=== PATIENT | female | born 1995 | race Caucasian/White ===

== ENCOUNTER 2016-06-13 12:33 | Outpatient (CLI) | payer OTHER ==
[2016-06-13 13:04] VITALS: BP 115/65; PULSE 126; RESP 20; TEMP 96.4
== END 2016-06-13 14:00 | disposition home or self-care (01) ==
LOC: FBPOP 12:33
PROVIDERS: ATTEND Obstetrics & Gynecology
DX: O47.03 False labor before 37 completed weeks of gestation, third trimester (principal); Z3A.36 36 weeks gestation of pregnancy
CPT/HCPCS: 59025; 99213

== ENCOUNTER 2016-06-16 01:08 | Outpatient (CLI) | payer OTHER ==
[2016-06-16 02:29] VITALS: BP 129/77; PULSE 86; RESP 15; TEMP 96.9
== END 2016-06-16 02:30 | disposition home or self-care (01) ==
LOC: FBPOP 01:08
PROVIDERS: ATTEND Obstetrics & Gynecology
DX: O26.93 Pregnancy related conditions, unspecified, third trimester (principal); Z3A.00 Weeks of gestation of pregnancy not specified
CPT/HCPCS: 59025; 84112; 99213

== ENCOUNTER 2016-07-09 11:49 | Outpatient (CLI) | payer OTHER ==
[2016-07-09 12:31] VITALS: BP 148/70; RESP 18; TEMP 97.2
[2016-07-09 13:12] VITALS: PULSE 115
== END 2016-07-09 12:55 | disposition home or self-care (01) ==
LOC: FBPOP 11:49
PROVIDERS: ATTEND Obstetrics & Gynecology
DX: O47.1 False labor at or after 37 completed weeks of gestation (principal); Z3A.40 40 weeks gestation of pregnancy
CPT/HCPCS: 59025; 84112; 99213

== ENCOUNTER 2016-07-11 08:06 | Inpatient (IN) | payer OTHER ==
[2016-07-11] MEDS ORDERED: OXYTOCIN 10 UNIT/ML 1 ML VIAL IM PRN (11:08)
[2016-07-11] MEDS ORDERED: TERBUTALINE 1 MG/ML VIAL SQ PRN (11:08)
[2016-07-11] MEDS ORDERED: METHYLERGONOVINE 0.2 MG/ML 1 ML AMP IM PRN (11:08)
[2016-07-11] MEDS ORDERED: LIDOCAINE 1% (PF) 10 MG/ML (30 ML SDV) SQ PRN (11:08)
[2016-07-11] MEDS ORDERED: CARBOPROST TROMETHAMINE 250 MCG/ML 1 ML AMP IM PRN (11:08)
[2016-07-11] MEDS ORDERED: PENICILLIN G POTASSIUM 5,000,000 UNIT in DEXTROSE 5% IN WATER 100 ML IV STA ×2 (11:12)
--- NOTE | 2016-07-11 11:16 | P.HPOB ---
History of Present Illness H&P Date: 07/11/16 Chief Complaint: 40-2/7 weeks, early labor The patient is a 21-year-old 3 para 2001 admitted at 40-2/7 weeks as established by last menstrual period and confirmed by second trimester ultrasound. She is admitted through triage with documented cervical change making the diagnosis of early labor. Her has been essentially uncomplicated though she is significantly obese and has a history of macrosomia and a previous delivery. Ultrasound performed in the third trimester at approximately 36 weeks demonstrated estimated weight at the 46th percentile. Group B strep status is positive. Obstetrical history 3 para 2001 with 2 term vaginal deliveries without complications though the second infant was more than 9 pounds. Current statistics are listed in history present illness. EDC of 07/09/2016 was established by last menstrual period and confirmed by second trimester ultrasound. Laboratory workup done traits of blood type of A+ with a negative antibody screen. Rubella status is immune. The remainder of laboratory workup was within normal limits. Early Glucola and second trimester Glucola were within normal limits. Group B strep status is positive. Gynecologic history: Unremarkable without any history of infections to include STDs. Review of Systems All systems: negative (Review of systems is confined to history of present illness.) Eyes: denies blurred vision, denies pain Ears, nose, mouth and throat: Denies headache, Denies sore throat Cardiovascular: Denies chest pain, Denies shortness of breath Respiratory: Denies cough Gastrointestinal: Denies abdominal pain, Denies diarrhea, Denies nausea, Denies vomiting Genitourinary: Denies dysuria, Denies hematuria Musculoskeletal: Denies myalgias Integumentary: Denies pruritus, Denies rash Neurological: Denies numbness, Denies weakness Psychiatric: Denies anxiety, Denies depression Endocrine: Denies fatigue, Denies weight change Past Medical History Past Medical History: No Reported History History of Any Multi-Drug Resistant Organisms: None Reported Past Surgical History: No Surgical Hx Reported Past Psychological History: Anxiety, Depression Smoking Status: Never smoker Past Alcohol Use History: None Reported Past Drug Use History: None Reported Medications and Allergies Home Medications Medication Instructions Recorded Confirmed Type Pnv with Ca,No.72/Iron/FA 1 tab PO DAILY 10/18/14 07/11/16 History [ Plus Tablet] Allergies Allergy/AdvReac Type Severity Reaction Status Date / Time No Known Allergies Allergy Verified 07/11/16 08:31 Exam - Vital Signs Vital signs: Intake and Output 07/10/16 07/11/16 07/11/16 22:59 06:59 14:59 Other: Weight 151.953 kg Patient Weight 07/12/16 06:59 Weight 151.953 kg In general, this is a well-developed, morbidly obese white female in some discomfort as she is in early labor. Her heart has a regular rhythm and rate without murmur. Her lungs are clear to auscultation bilaterally in all meadows. Her abdomen is obese, nondistended, has normal active bowel sounds, soft, nontender, and without any palpable masses aside from uterine fundus. Her extremities without any cyanosis, clubbing, or edema and are nontender to palpation. Digital cervical examination performed by the nursing staff to straights her cervix to be 4+ centimeters dilated, 70% effaced, with the vertex in presentation at -2 station. Assessment and Plan (1) Group B streptococcal infection in Status: Acute (2) Active labor at term Status: Acute Plan: The patient is admitted for active management of labor. Antibody prophylaxis has been ordered. She will shortly undergo artificial rupture of membranes and expectant management will be practiced. She is a good candidate for either IV or epidural analgesia, whichever she may choose. She will continue to have close maternal and surveillance throughout.
[2016-07-11] MEDS ORDERED: BUTORPHANOL 1 MG/ML 1 ML VIAL IV PRN (11:34)
[2016-07-11] MEDS: LACTATED RINGERS 1,000 ML IV SCH (11:45)
[2016-07-11 11:57] LABS: Basophils % (A) 0 %; CH 26.8; Eosinophils # (A) 0.1 k/uL (0-0.7); Eosinophils % (A) 1 %; HCT 34.5 % (34.0-46.0); HGB 11.4 gm/dL (11.4-16.0); Hypochromasia Slight; Luc # (Auto) 0.17; Luc % (Auto) 2; Lymphocytes # (A) 1.9 k/uL (1.0-4.8); Lymphocytes % (A) 17 %; MCH 27.9 pg (25.0-35.0); MCHC 33.1 g/dL (31.0-37.0); MCV 84.3 fL (80.0-100.0); Mean Platelet Volume 10.5; Monocytes # (A) 0.5 k/uL (0-1.0); Monocytes % (A) 5 %; Neutrophils # (A) 8.3 k/uL (1.3-7.7); Neutrophils % (A) 75 %; RDW 15.1 % (11.5-15.5); WBC 11.1 k/uL (3.8-10.6); WBC (Perox) 11.22
[2016-07-11 12:41] VITALS: BMI 54.7
[2016-07-11] MEDS ORDERED: diphenhydrAMINE 25 MG CAP PO PRN (13:57)
[2016-07-11] MEDS ORDERED: diphenhydrAMINE 50 MG CAP PO PRN (13:57)
[2016-07-11] MEDS ORDERED: SIMETHICONE 80 MG CHEWABLE PO PRN (13:57)
[2016-07-11] MEDS ORDERED: Acetaminophen-Codeine 300-30mg TAB PO PRN (13:57)
[2016-07-11] MEDS ORDERED: WITCH HAZEL 1 EACH MED..PAD TOPICAL PRN (13:57)
[2016-07-11] MEDS ORDERED: diphenhydrAMINE 50 MG/ML 1 ML VIAL IVP PRN ×2 (13:57)
[2016-07-11] MEDS ORDERED: LANOLIN CREAM 5 GM TUBE TOPICAL PRN (13:57)
[2016-07-11] MEDS ORDERED: BENZOCAINE SPRAY 57GM TOPICAL PRN (13:57)
[2016-07-11] MEDS ORDERED: ACETAMINOPHEN TAB 325 MG TAB PO PRN (13:57)
[2016-07-11] MEDS ORDERED: HYDROCORTISONE 2.5% RECTAL CREAM 30 GM TUBE RECTAL PRN (13:57)
[2016-07-11] MEDS ORDERED: ZOLPIDEM 5 MG TAB PO PRN (13:57)
--- NOTE | 2016-07-11 14:01 | P.PROBDLV ---
Vaginal Delivery Note - . Vaginal Delivery Note: The patient is a 21-year-old 3 para 2 scissors or 2 admitted at 40-2/7 weeks by good dating parameters. She is admitted in early active labor with all signs reassuring. Her has been essentially uncomplicated and group B strep status is positive. As result, she had antibiotic prophylaxis started. Following the antibiotics being run in, artificial rupture of membranes is carried out showing clear fluid. She made fairly rapid progress through the active phase of labor to complete and then pushed over 2 contractions to a normal spontaneous vaginal delivery of a viable 8 lbs. 9 oz. baby girl with Apgars of 9 at 1 minute and 9 at 5 minutes. The placenta was delivered spontaneously, intact, and grossly normal with a grossly normal three- vessel cord inserted 1 cm from the margin of the disc. There were no lacerations of the perineum, vagina, or cervix. Estimated blood loss for the case was approximately 100 mL. There were no complications. All sponge, instrument, and needle counts were correct. Both mother and are resting comfortably in recovery.
[2016-07-11] MEDS ORDERED: OXYTOCIN 20 UNITS/1000 ML NS 1,000 ML IV SCH (14:30)
[2016-07-11] MEDS: IBUPROFEN 600 MG TAB PO PRN (15:54)
[2016-07-11] MEDS: SENNOSIDES-DOCUSATE SODIUM 1 EACH TAB PO SCH ×2 (19:27→19:28)
[2016-07-11] MEDS: Acetaminophen-Codeine 300-30mg TAB PO PRN ×2 (19:28→22:30)
[2016-07-12] MEDS: LACTATED RINGERS 1,000 ML IV SCH (00:25)
[2016-07-12] MEDS: PENICILLIN G POTASSIUM 2,500,000 UNIT in DEXTROSE 5% IN WATER 100 ML IV SCH ×2 (00:25)
[2016-07-12 00:55] VITALS: RESP 16
[2016-07-12] MEDS: IBUPROFEN 600 MG TAB PO PRN (06:34)
--- NOTE | 2016-07-12 07:22 | P.PNOBGVD ---
Subjective - Subjective Patient reports: Reports appetite normal, Reports voiding normally, Reports pain well controlled, Reports ambulating normally : doing well Objective - Latest Vital Signs Latest vital signs: Vital Signs Temp Pulse Resp BP 07/12/16 00:00 98.3 F 58 L 16 141/79 07/11/16 20:00 98.0 F 98 14 130/78 07/11/16 15:55 97.6 F 79 16 136/70 07/11/16 15:00 92 16 139/82 07/11/16 14:43 89 16 123/65 07/11/16 14:27 83 16 120/58 07/11/16 14:13 102 H 16 129/83 07/11/16 13:56 75 16 120/68 07/11/16 11:08 96.6 F L 112 H 16 139/81 07/11/16 08:36 96.2 F L 112 H 16 139/81 Intake and Output 07/11/16 07/12/16 07/12/16 22:59 06:59 14:59 Intake Total 260.417 Output Total 100 Balance 160.417 Intake: Intake, IV Titration 260.417 Amount Oxytocin 20 Units/1000 ml 260.417 Ns 1,000 ml @ Per Protocol IV .Q0M JAYDA Rx#: [id number] Output: Estimated Blood Loss 100 Other: # Voids 1 3 - Exam Lungs: bilateral: normal Chest: Normal S1, Normal S2 Extremities: Present: normal Abdomen: Present: normal appearance, soft Uterus: Present: normal, firm (The uterine fundus as tonic and nontender below the umbilicus.), other (The patient has some woody edema in the pannus which should resolve on its own.) - Labs Labs: Abnormal Lab Results - Last 24 Hours (Table) 07/11/16 Range/Units 11:15 WBC 11.1 H (3.8-10.6) k/uL Plt Count 149 L (150-450) k/uL Neutrophils # 8.3 H (1.3-7.7) k/uL Assessment and Plan (1) Group B streptococcal infection in Current Visit: Yes Status: Acute Code(s): O98.819 - OTH MATERNAL INFEC/ PARASTC DISEASES COMP PREG, UNSP TRI; B95.1 - STREPTOCOCCUS, GROUP B, [facility] Code(s): 577704042 (2) Active labor at term Current Visit: Yes Status: Acute Code(s): VMV0033 - SNOMED Code(s): 21926211 (3) Normal vaginal delivery Narrative/Plan: Continue routine care. I would anticipate discharge home tomorrow as , given the patient's group B strep positivity, the baby is likely to require 48 hours of observation. I have encouraged her to continue to be up and ambulating in the hallways. Current Visit: Yes Status: Acute Code(s): LNK5674 - SNOMED Code(s): 587617199
[2016-07-12] MEDS: SENNOSIDES-DOCUSATE SODIUM 1 EACH TAB PO SCH (08:24)
[2016-07-12] MEDS: Acetaminophen-Codeine 300-30mg TAB PO PRN (21:30)
[2016-07-13] MEDS: IBUPROFEN 600 MG TAB PO PRN (01:49)
[2016-07-13] MEDS: SENNOSIDES-DOCUSATE SODIUM 1 EACH TAB PO SCH (08:01)
[2016-07-13] MEDS: Acetaminophen-Codeine 300-30mg TAB PO PRN (08:01)
[2016-07-13 08:14] VITALS: BP 119/70; PULSE 70; TEMP 97
--- NOTE | 2016-07-13 11:37 | P.DS ---
Providers Date of admission: 07/11/16 10:55 Expected date of discharge: 07/13/16 Attending physician: Saad Rogers Primary care physician: Stated None - Discharge Diagnosis(es) (1) Group B streptococcal infection in Current Visit: Yes Status: Acute (2) Active labor at term Current Visit: Yes Status: Acute (3) Normal vaginal delivery Current Visit: Yes Status: Acute Hospital Course: The patient is a 21-year-old 3 para 2001 admitted at 40-2/7 weeks by good dating parameters. She is admitted with documented cervical change making the diagnosis of labor. Her was uncomplicated though she is morbidly obese and has a history of macrosomia. Group B strep status is positive. As result she had antibiotic prophylaxis started upon admission. Following the the first dose of antibiotics, she underwent artificial rupture of membranes for clear fluid. She made rapid progress to complete and then pushed to a normal spontaneous vaginal delivery of a viable 8 lbs. 9 oz. baby girl with Apgars of 9 at 1 minute and 9 at 5 minutes. Her course was unremarkable with vital signs remaining stable and her temperature was afebrile throughout. She was asked remain in the hospital for 2 days for observation only as she did not receive 4 hours of antibiotics prior to . She was deemed stable for discharge on day #2 was discharged home to follow-up in the office in 6 weeks' time routinely. Discharge instructions included calling for any significantly increased bleeding or foul- smelling lochia, significantly increased fever or abdominal pain, perineal complaints, breast complaints, or anything else that concerned her. She is additionally instructed to have nothing in the vagina for at least 6 weeks time to include intercourse. She understood her instructions and agrees to follow up as noted above. Discharge medications included continued vitamins as she has opted to breast-feed. She otherwise was to use [id number] analgesic pain medications as needed. Maternal blood type is A+ and rubella status is immune. Procedures: #1. Antibiotic prophylaxis #2. Artificial rupture of membranes #3. Normal spontaneous vaginal delivery Patient Condition at Discharge: Good Plan - Discharge Summary New Discharge Prescriptions: No Action Pnv with Ca,No.72/Iron/FA [ Plus Tablet] 1 tab PO DAILY Discharge Medication List Pnv with Ca,No.72/Iron/FA [ Plus Tablet] 1 tab PO DAILY 10/18/14 [ History] Follow up Appointment(s)/Referral(s): Zena Bell MD [STAFF PHYSICIAN] - 6 Weeks Discharge Disposition: HOME SELF-CARE
== END 2016-07-13 12:00 | disposition home or self-care (01) | DRG 774 ==
LOC: FBPOP 08:06 → 4FBP 10:55
PROVIDERS: ADMIT Obstetrics & Gynecology; ATTEND Obstetrics & Gynecology
PROC: 10E0XZZ Delivery of Products of Conception, External Approach (ICD-10-PCS; principal; 2016-07-11)
DX: O98.82 Other maternal infectious and parasitic diseases complicating childbirth (principal); Z68.43 Body mass index [BMI] 50.0-59.9, adult; E66.01 Morbid (severe) obesity due to excess calories; O99.214 Obesity complicating childbirth; B95.1 Streptococcus, group B, as the cause of diseases classified elsewhere; Z3A.40 40 weeks gestation of pregnancy; Z37.0 Single live birth; Z79.899 Other long term (current) drug therapy; Z86.59 Personal history of other mental and behavioral disorders
CPT/HCPCS: 59025; 85025; 88307; 99213

== ENCOUNTER 2016-07-14 11:16 | Emergency (ER) | payer OTHER ==
[2016-07-14 11:29] VITALS: RESP 16
--- NOTE | 2016-07-14 13:34 | ED ---
Female Urogenital HPI - General Chief complaint: Vaginal Bleeding Stated complaint: URINATING BLOODCLOT Time Seen by Provider: 07/14/16 13:08 Source: patient Mode of arrival: ambulatory Limitations: no limitations - History of Present Illness Initial comments: Patient is a 21-year-old female who presents to the ED with a chief complaint of vaginal bleeding s/p vaginal delivery. The patient states that she delivered her child without complication on 07/11/2016. The patient was discharged yesterday. She states that she had a small amount of vaginal bleeding while in the hospital. She states that when she arrived home from the hospital she began to have worsening vaginal bleeding. She states that this was particularly noted last night. Patient states that this morning while urinating she found a large clot that exited from her vagina. Patient states that she has had moderate vaginal bleeding since that point in time. She states that she has had to change her pad every 2 hours. Patient denies any foul smell associated with this bleeding. Patient denies any dizziness or lightheadedness. She does note that she is having a crampy feeling in her lower back aure to contractions. The patient also complains of left-sided diaphragmatic pain, stating that it feels like she has something kicking her. The patient denies any shortness of breath associated with the sensation. Patient denies any fevers or chills. The patient follows with Dr. Bell as her OBGYN. Reviewing documentation from patient's stay in the hospital, the only item of note is that patient tested GBS positive. She was given prophylactic antibiotics prior to delivery and kept in the hospital for a period of 2 days. - Related Data Home Medications Medication Instructions Recorded Confirmed Pnv with Ca,No.72/Iron/FA 1 tab PO DAILY 10/18/14 07/14/16 [ Plus Tablet] Allergies Allergy/AdvReac Type Severity Reaction Status Date / Time No Known Allergies Allergy Verified 07/14/16 14:19 Review of Systems ROS Statement: Those systems with pertinent positive or pertinent negative responses have been documented in the HPI. ROS Other: All systems not noted in ROS Statement are negative. Constitutional: Denies: fever, chills Eyes: Denies: vision change ENT: Denies: throat pain Respiratory: Denies: cough, dyspnea, wheezes, hemoptysis, stridor Cardiovascular: Denies: chest pain Endocrine: Denies: fatigue Gastrointestinal: Reports: abdominal pain (suprapubic crampy pain). Denies: nausea, vomiting, diarrhea, constipation Genitourinary: Reports: other (passage of large blot clot. Moderate vaginal bleeding). Denies: urgency, dysuria, frequency, hematuria Musculoskeletal: Denies: back pain, joint swelling, arthralgia Skin: Denies: rash, lesions Neurological: Denies: headache, weakness, numbness, paresthesias Psychiatric: Denies: anxiety, depression Past Medical History Past Medical History: No Reported History History of Any Multi-Drug Resistant Organisms: None Reported Past Surgical History: No Surgical Hx Reported Additional Past Surgical History / Comment(s): oral surgery Past Psychological History: Anxiety, Depression Smoking Status: Never smoker Past Alcohol Use History: None Reported Past Drug Use History: None Reported - Past Family History Mother Family Medical History: Hypertension General Exam Limitations: no limitations General appearance: alert, in no apparent distress Head exam: Present: atraumatic, normocephalic Eye exam: Present: normal appearance, PERRL, EOMI, other (conjunctiva are non- pale in appearance) Pupils: Present: normal accommodation ENT exam: Present: normal exam, normal oropharynx Neck exam: Present: normal inspection, full ROM Respiratory exam: Present: normal lung sounds bilaterally. Absent: respiratory distress, wheezes, rales, rhonchi, stridor Cardiovascular Exam: Present: regular rate, normal rhythm GI/Abdominal exam: Present: soft. Absent: distended, tenderness, guarding, rebound Extremities exam: Present: normal inspection, normal capillary refill. Absent: pedal edema Back exam: Present: normal inspection, full ROM Neurological exam: Present: alert, altered, oriented X3 Psychiatric exam: Present: normal affect, normal mood Skin exam: Present: warm, dry, intact. Absent: pallor Course Vital Signs 07/14/16 11:24 Temperature 97.0 F L Pulse Rate 85 Respiratory 16 Rate Blood Pressure 118/72 O2 Sat by Pulse 95 Oximetry Medical Decision Making - Medical Decision Making Patient is a 21-year-old female who presents to ED with a chief complaint of vaginal bleeding s/p vaginal delivery. Patient delivered her child on 2016. Today, she passed a large blood clot and has been having a crampy, contraction-like sensation. Patient has had moderate bleeding. She has yet to contact Dr. Rogers (who delivered her baby) or Dr. Bell (her normal EXTRACTIONS TECHNOLOGIST) . We'll check CBC, PT/INR/PTT. Check type and screen as well. Will perform pelvic exam on patient to exclude possibility of blood clot in the cervical os. Will then contact Dr. Bell. 2:33 PM Speculum exam performed. Trace amount of dark colored blood noted in the vaginal vault. There is very minor bleeding noted. There is no clot noted within the cervical os. Patient tolerated the procedure without complication. 2:53 PM Patient's hemoglobin is 11.3. Her hemoglobin was 11.4 on July 11 prior to delivery. Call placed to Dr. Bell. 3:[address] Bell, who has reviewed patient's documentation and agrees that patient is safe for discharge home. Patient is , which should help to resolve her bleeding. Dr. Bell has recommended that the patient continue with her home vitamins. Spoke with patient and communicated conversation with Dr. Bell. Patient will be discharged at this point in time. She is comfortable with this plan. I have encouraged her to follow-up with Dr. Bell as recommended in her discharge instructions post-delivery. Encouraged the patient return to the ED should she have any fever or chills. I have counseled her to contact Dr. Bell's office should she have any foul- smelling discharge or worsening bleeding. I have answered all the patient's questions to her satisfaction. - Lab Data Result diagrams: 07/14/16 14:16 Lab Results 07/14/16 07/14/16 Range/Units 14:12 14:16 WBC 8.8 (3.8-10.6) k/uL RBC 4.09 (3.80-5.40) m/uL Hgb 11.3 L (11.4-16.0) gm/dL Hct 33.7 L (34.0-46.0) % MCV 82.4 (80.0-100.0) fL MCH 27.5 (25.0-35.0) pg MCHC 33.4 (31.0-37.0) g/dL RDW 14.8 (11.5-15.5) % Plt Count 201 (150-450) k/uL PT 9.6 (9.0-12.0) sec INR 0.9 (<1.1) APTT 23.5 (22.0-30.0) sec Disposition Clinical Impression: Uterine bleeding, Ectopic without intrauterine Disposition: HOME SELF-CARE Condition: Good Instructions: Bleeding (ED) Additional Instructions: Please return to the ED should she have worsening symptoms while at home, particularly worsening vaginal bleeding, vaginal discharge with foul odor, or fever. Referrals: Manuel Cordon MD [Primary Care Provider] - 1-2 days (As Needed) Zena Bell MD [STAFF PHYSICIAN] - 07/28/16 (Please follow up with Dr. Bell per the recommendations in your post-delivery paperwork) Time of Disposition: 15:13
[2016-07-14 14:25] LABS: CH 26.5; CHCM 32.2; HCT 33.7 % (34.0-46.0); HDW 2.74; HGB 11.3 gm/dL (11.4-16.0); MCH 27.5 pg (25.0-35.0); MCHC 33.4 g/dL (31.0-37.0); MCV 82.4 fL (80.0-100.0); RBC 4.09 m/uL (3.80-5.40); RDW 14.8 % (11.5-15.5); WBC 8.8 k/uL (3.8-10.6)
[2016-07-14 14:37] LABS: INR 0.9 (<1.1); Partial Thromboplastin Time 23.5 sec (22.0-30.0); Prothrombin Time 9.6 sec (9.0-12.0)
[2016-07-14 15:24] VITALS: BP 110/67; PULSE 72; TEMP 97.1
== END 2016-07-14 15:23 | disposition home or self-care (01) ==
LOC: EC 11:16
DX: O72.2 Delayed and secondary postpartum hemorrhage (principal); Z79.899 Other long term (current) drug therapy
CPT/HCPCS: 36415; 85027; 85610; 85730; 86850; 86900; 86901; 99284

== ENCOUNTER 2016-11-05 09:57 | Emergency (ER) | payer OTHER ==
[2016-11-05 10:13] VITALS: RESP 18; TEMP 97.3
[2016-11-05] MEDS ORDERED: KETOROLAC 30 MG/ML 1 ML VIAL IVP STA (10:32)
[2016-11-05] MEDS ORDERED: METOCLOPRAMIDE 5 MG/ML 2 ML VIAL IVP STA (10:32)
[2016-11-05] MEDS ORDERED: SODIUM CHLORIDE 0.9% 500 ML IV ONE (10:33)
[2016-11-05] MEDS ORDERED: diphenhydrAMINE 50 MG/ML 1 ML VIAL IVP STA (10:33)
--- NOTE | 2016-11-05 11:05 | ED ---
Headache HPI - General Chief Complaint: Headache Stated Complaint: migraine Time Seen by Provider: 11/05/16 10:15 Source: patient, RN notes reviewed Mode of arrival: ambulatory Limitations: no limitations - History of Present Illness Initial Comments: 21-year-old female presents emergency Department chief complaint migraine headache. Patient states she has a history of migraines states that this is her typical migraine headache. She has not taken anything prior arrival. Patient states that she does have some photosensitivity and nausea. Denies any focal weakness, fever, chills, neck pain, neck stiffness, vomiting, diarrhea, constipation. Patient states that she has had come the emergency department in the past for her migraine headaches. Patient NO KNOWN DRUG ALLERGIES. Denies any chance . - Related Data Home Medications Medication Instructions Recorded Confirmed Pheniramine/P-Eph/Acetaminophn 1 packet PO BID PRN 11/05/16 11/05/16 [Theraflu Sinus & Cold Packet] Previous Rx's Medication Instructions Recorded Butalb/APAP/Caff 50-325-40Mg 1 tab PO Q4H PRN #10 tablet 11/05/16 [Fioricet 50-325-40] Allergies Allergy/AdvReac Type Severity Reaction Status Date / Time No Known Allergies Allergy Verified 11/05/16 10:32 Review of Systems ROS Statement: Those systems with pertinent positive or pertinent negative responses have been documented in the HPI. ROS Other: All systems not noted in ROS Statement are negative. Past Medical History Past Medical History: No Reported History History of Any Multi-Drug Resistant Organisms: None Reported Past Surgical History: No Surgical Hx Reported Additional Past Surgical History / Comment(s): oral surgery Past Psychological History: Anxiety, Depression Smoking Status: Never smoker Past Alcohol Use History: None Reported Past Drug Use History: None Reported - Past Family History Mother Family Medical History: Hypertension General Exam Limitations: no limitations General appearance: alert, in no apparent distress Head exam: Present: atraumatic, normocephalic, normal inspection Eye exam: Present: normal appearance, PERRL, EOMI. Absent: scleral icterus, conjunctival injection, periorbital swelling ENT exam: Present: normal exam, normal oropharynx, mucous membranes moist, TM's normal bilaterally, normal external ear exam Neck exam: Present: normal inspection, full ROM. Absent: tenderness, meningismus, lymphadenopathy Respiratory exam: Present: normal lung sounds bilaterally. Absent: respiratory distress, wheezes, rales, rhonchi, stridor Cardiovascular Exam: Present: regular rate, normal rhythm, normal heart sounds. Absent: systolic murmur, diastolic murmur, rubs, gallop, clicks Neurological exam: Present: alert, oriented X3, CN II-XII intact, reflexes normal. Absent: motor sensory deficit Skin exam: Present: warm, dry, intact, normal color. Absent: rash Course Vital Signs 11/05/16 11/05/16 10:11 11:24 Temperature 97.3 F L Pulse Rate 67 73 Respiratory 18 18 Rate Blood Pressure 137/84 101/57 O2 Sat by Pulse 100 98 Oximetry Medical Decision Making - Medical Decision Making 19-year-old female was unresponsive migraine headache. Patient states she feels much improved after IV fluids and IV medications. Patient will be discharged with Fioricet. Return parameters were discussed. Disposition Clinical Impression: Migraine Disposition: HOME SELF-CARE Condition: Stable Instructions: Acute Headache (ED) Additional Instructions: Please return to the Emergency Department if symptoms worsen or any other concerns. Prescriptions: Butalb/APAP/Caff 50-325-40Mg [Fioricet 50-325-40] 1 tab PO Q4H PRN #10 tablet PRN Reason: Headache Referrals: Manuel Cordon MD [Primary Care Provider] - 1-2 days Time of Disposition: 11:49
[2016-11-05 12:17] VITALS: BP 126/77; PULSE 69
== END 2016-11-05 12:17 | disposition home or self-care (01) ==
LOC: EC 09:57
DX: G43.909 Migraine, unspecified, not intractable, without status migrainosus (principal)
CPT/HCPCS: 99283; 96374; 96375 ×2; 96361; J1200; J2765; J1885

== ENCOUNTER 2020-10-31 11:29 | Outpatient (CLI) | payer OTHER ==
[2020-10-31 13:22] LABS: Appearance,Urine Clear (Clear); Bilirubin,Urine Negative (Negative); Blood,Urine Negative (Negative); Color,Urine Light Yellow; Glucose,Urine (UA) Negative (Negative); Ketones,Urine Negative (Negative); Leukocyte Esterase,Urine Trace (Negative); Mucus,Urine Rare /hpf; Nitrite,Urine Negative (Negative); Protein,Urine Negative (Negative); RBC,Urine <1 /hpf (0-5); Specific Gravity,Urine 1.007 (1.001-1.035); Squamous Epithelial Cell,Urine 1 /hpf (0-4); Urobilinogen,Urine <2.0 mg/dL (<2.0); WBC,Urine 2 /hpf (0-5)
[2020-10-31 13:55] VITALS: BP 108/68; PULSE 95; RESP 20; TEMP 96.4
--- NOTE | 2020-12-02 13:18 | P.MSEPDOC ---
Presenting Problems - Arrival Data Date of Arrival on Unit: 10/31/20 Time of Arrival on Unit: 11:25 Mode of Transport: Ambulatory - Complaint OB-Reason for Admission/Chief Complaint: Possible Onset of Labor, Decreased Movement Medical History - Information : 4 Para: 3 Term: 3 : 0 Abortions: Spontaneous or Elective: 0 Number of Living Children: 3 - Gestational Age Gestational Age by BRUNO (wks/days): 34 Weeks and 2 Days Review of Systems - Review of Systems Constitutional: No problems Breast: No problems ENT: No problems Cardiovascular: No problems Respiratory: No problems Gastrointestinal: No problems Genitourinary: No problems Musculoskeletal: No problems Neurological: No problems Skin: No problems Vital Signs - Temperature Temperature: 96.4 F Temperature Source: Temporal Artery Scan - Pulse Apical Pulse Rate: 95 Pulse Assessment Method: Automatic Cuff - Respirations Respiratory Rate: 20 Oxygen Delivery Method: Room Air - Blood Pressure Left Arm Blood Pressure: 108/68 Blood Pressure Mean: 81 Blood Pressure Source: Automatic Cuff Medical Screen Scoring - Cervical Exam Dilation (cm): 1 Effacement (%): 40 Station: -3 Membranes: Intact - Uterine Contractions Resting: Soft to palpation - Assessment - Baby A Baseline FHR: 135 Heart Rate - NICHD Category: Category I (Normal) NST: Reactive Physician Notification - Physician Notified Physician Notified Date: 10/31/20 Physician Notified Time: 13:00 Physician: Amanda Curry New Order Received: Yes - Notification Comment Comment: d/c home after UA results Maternal Triage Index - Maternal Triage Index Presenting for scheduled procedure w/no complaint: No - Stat/Priority 1 Stat Priority 1: No - Urgent/Priority 2 Urgent Priority 2: No - Prompt/Priority 3 Prompt Priority 3: Yes Criteria Met for Priority 3: 36w2d c/o ctx Disposition - Disposition OB Disposition: Discharge to home Discharge Date: 10/31/20 Discharge Time: 13:45 I agree with the RN Medical Screening Exam: Yes Case reviewed; plan agreed upon as documented in EMR&OBIX.: Yes Diagnosis: FALSE LABOR BEFORE 37 COMPLETED WEEKS OF GEST, THIRD TRI
== END 2020-10-31 13:45 | disposition home or self-care (01) ==
LOC: FBPOP 11:29
PROVIDERS: ATTEND Obstetrics & Gynecology Obstetrics
DX: O47.03 False labor before 37 completed weeks of gestation, third trimester (principal); Z3A.34 34 weeks gestation of pregnancy
CPT/HCPCS: 59025; 81001; 99213

== ENCOUNTER 2020-11-01 20:51 | Outpatient (CLI) | payer OTHER ==
[2020-11-01 21:36] VITALS: BP 119/56; PULSE 108; RESP 16; TEMP 97.6
--- NOTE | 2020-11-24 11:29 | P.MSEPDOC ---
Presenting Problems - Arrival Data Date of Arrival on Unit: 11/01/20 Time of Arrival on Unit: 20:51 Mode of Transport: Ambulatory - Complaint OB-Reason for Admission/Chief Complaint: Possible Onset of Labor Comment: Pt states contractions every 5 minutes, rates pain 6/10 with contraction,. states since 0 was at work and on her feet alot. Medical History - Information : 4 Para: 3 Term: 3 : 0 Abortions: Spontaneous or Elective: 0 Number of Living Children: 3 - Gestational Age Gestational Age by BRUNO (wks/days): 34 Weeks and 3 Days Review of Systems - Review of Systems Constitutional: No problems Breast: No problems ENT: No problems Cardiovascular: No problems Respiratory: No problems Gastrointestinal: No problems Genitourinary: No problems Musculoskeletal: No problems Neurological: No problems Skin: No problems Vital Signs - Temperature Temperature: 97.6 F Temperature Source: Temporal Artery Scan - Pulse Right Brachial Pulse Rate: 108 Pulse Assessment Method: Automatic Cuff - Respirations Respiratory Rate: 16 Oxygen Delivery Method: Room Air O2 Sat by Pulse Oximetry: 97 - Blood Pressure Right Arm Blood Pressure: 119/56 Blood Pressure Mean: 77 Blood Pressure Source: Automatic Cuff Medical Screen Scoring - Cervical Exam Dilation (cm): 0 Effacement (%): 0 Station: -3 Membranes: Intact - Uterine Contractions Frequency From (mins): 0 Frequency To (mins): 0 - Assessment - Baby A Baseline FHR: 140 Heart Rate - NICHD Category: Category I (Normal) Physician Notification - Physician Notified Physician Notified Date: 11/01/20 Physician Notified Time: 21:20 Physician: Elizabeth Bowen Order Received: Yes - Notification Comment Comment: D/c home, call the office in the morning for follow up with Dr. Bell Maternal Triage Index - Maternal Triage Index Presenting for scheduled procedure w/no complaint: No - Stat/Priority 1 Stat Priority 1: No - Urgent/Priority 2 Urgent Priority 2: No - Prompt/Priority 3 Prompt Priority 3: Yes Criteria Met for Priority 3: 2120 C/O contractions every 5 minutes 34 2/7 GA Disposition - Disposition OB Disposition: Discharge to home, Written follow up instructions reviewed Discharge Date: 11/01/20 Discharge Time: 21:20 I agree with the RN Medical Screening Exam: Yes Physician's MSE Comment: I have neither seen nor examined the patient. Case reviewed; plan agreed upon as documented in EMR&OBIX.: Yes Diagnosis: RELATED CONDITIONS, UNSPECIFIED, THIRD TRIMESTER
== END 2020-11-01 21:23 | disposition home or self-care (01) ==
LOC: FBPOP 20:51
PROVIDERS: ATTEND Obstetrics & Gynecology
DX: O26.93 Pregnancy related conditions, unspecified, third trimester (principal); Z3A.34 34 weeks gestation of pregnancy
CPT/HCPCS: 59025; 99213

== ENCOUNTER 2020-11-14 13:42 | Outpatient (CLI) | payer OTHER ==
[2020-11-14] MEDS ORDERED: ACETAMINOPHEN IV (For NPO) 1,000 MG in EMPTY BAG 1 BAG IVPB STA (14:17)
[2020-11-14] MEDS: LACTATED RINGERS 1,000 ML IV SCH ×2 (14:37→15:39)
[2020-11-14 14:45] LABS: Basophils % (A) 0 %; Eosinophils # (A) 0.3 k/uL (0-0.7); Eosinophils % (A) 1 %; HCT 36.2 % (34.0-46.0); HGB 11.7 gm/dL (11.4-16.0); Lymphocytes # (A) 0.7 k/uL (1.0-4.8); Lymphocytes % (A) 3 %; MCH 27.6 pg (25.0-35.0); MCHC 32.2 g/dL (31.0-37.0); MCV 85.7 fL (80.0-100.0); Mean Platelet Volume 10.2; Monocytes # (A) 0.7 k/uL (0-1.0); Monocytes % (A) 3 %; Neutrophils # (A) 19.3 k/uL (1.3-7.7); Neutrophils % (A) 92 %; Platelet Count 159 k/uL (150-450); RBC 4.22 m/uL (3.80-5.40); RDW 14.3 % (11.5-15.5); WBC 21.1 k/uL (3.8-10.6)
[2020-11-14 15:42] LABS: African American GFR (CKD) >90 (>60 ml/min/1.73 sqM); Anion Gap 8 mmol/L; Blood Urea Nitrogen <2 mg/dL (7-17); Calcium 8.5 mg/dL (8.4-10.2); Carbon Dioxide 17 mmol/L (22-30); Chloride 107 mmol/L (98-107); Glucose 91 mg/dL (74-99); Non-African American GFR(CKD) >90 (>60 ml/min/1.73 sqM); Potassium 3.7 mmol/L (3.5-5.1); Sodium 132 mmol/L (137-145)
[2020-11-14 16:10] VITALS: BP 131/60; PULSE 98; RESP 20; TEMP 98.8
--- NOTE | 2020-11-21 07:47 | P.MSEPDOC ---
Presenting Problems - Arrival Data Date of Arrival on Unit: 11/14/20 Time of Arrival on Unit: 14:45 Mode of Transport: Wheelchair - Complaint OB-Reason for Admission/Chief Complaint: Acute Nausea/Vomiting, Pain Comment: back and hip pain, cough, n/v. Medical History - Information : 4 Para: 3 Term: 3 : 0 Abortions: Spontaneous or Elective: 0 Number of Living Children: 3 - Gestational Age Gestational Age by BRUNO (wks/days): 36 Weeks and 2 Days Review of Systems - Review of Systems Constitutional: No problems Breast: No problems ENT: Cough Cardiovascular: No problems Respiratory: No problems Gastrointestinal: No problems Genitourinary: No problems Musculoskeletal: No problems Neurological: No problems Skin: No problems Vital Signs - Temperature Temperature: 98.8 F Temperature Source: Oral - Pulse Right Sitting Pulse Oximetery Pulse Rate: 98 Pulse Assessment Method: Pulse Oximetry - Respirations Respiratory Rate: 20 Oxygen Delivery Method: Room Air O2 Sat by Pulse Oximetry: 98 - Blood Pressure Right Arm Sitting Blood Pressure: 131/60 Blood Pressure Mean: 83 Blood Pressure Source: Automatic Cuff Medical Screen Scoring - Cervical Exam Dilation (cm): 1 Effacement (%): 50 Station: -3 Membranes: Intact - Assessment - Baby A Baseline FHR: 160 Heart Rate - NICHD Category: Category I (Normal) NST: Reactive Physician Notification - Physician Notified Physician Notified Date: 11/14/20 Physician Notified Time: 16:00 Physician: Zena Bell New Order Received: Yes - Notification Comment Comment: NST reactive after interventions intiated, offirmev given, Covid rapid neg, PCR pending. Pt to follow up in the offic Thursday as scheduled. Maternal Triage Index - Maternal Triage Index Presenting for scheduled procedure w/no complaint: No - Stat/Priority 1 Stat Priority 1: No - Urgent/Priority 2 Urgent Priority 2: Yes Provider Notified: Zena Bell Provider Notified Time: 15:15 Criteria Met for Priority 2: IV fluids, covid test, labs, offirmev Disposition - Disposition OB Disposition: Physician follow up in office, Discharge to home Discharge Date: 11/14/20 Discharge Time: 16:10 I agree with the RN Medical Screening Exam: Yes Case reviewed; plan agreed upon as documented in EMR&OBIX.: Yes Comments: Patient was neither seen nor examined by me Diagnosis: LATE VOMITING OF
== END 2020-11-14 16:15 | disposition home or self-care (01) ==
LOC: FBPOP 13:42
PROVIDERS: ATTEND Obstetrics & Gynecology
DX: O21.2 Late vomiting of pregnancy (principal); Z3A.36 36 weeks gestation of pregnancy
CPT/HCPCS: 59025; 99214; 96361; 96367; 80048; 85025; 87635; U0003; U0005; J0131

== ENCOUNTER 2020-11-30 21:47 | Inpatient (IN) | payer OTHER ==
[2020-11-30] MEDS ORDERED: OXYTOCIN 10 UNIT/ML 1 ML VIAL IM PRN (22:06)
[2020-11-30] MEDS ORDERED: CARBOPROST TROMETHAMINE 250 MCG/ML 1 ML AMP IM PRN (22:06)
[2020-11-30] MEDS ORDERED: TERBUTALINE 1 MG/ML VIAL SQ PRN (22:06)
[2020-11-30] MEDS ORDERED: METHYLERGONOVINE 0.2 MG/ML 1 ML AMP IM PRN (22:06)
[2020-11-30] MEDS ORDERED: LIDOCAINE 0.5% (PF) 5 MG/ML (50 ML SDV) SQ PRN (22:06)
[2020-11-30] MEDS ORDERED: AMPICILLIN 2,000 MG in SODIUM CHLORIDE 0.9% 100 ML IVPB STA (22:06)
[2020-11-30] MEDS ORDERED: LACTATED RINGERS 1,000 ML IV SCH (22:15)
[2020-11-30] MEDS ORDERED: OXYTOCIN 30 UNITS/500 ML NS 30 UNIT in SALINE 1 500ML.BAG IV SCH (22:15)
[2020-11-30] MEDS: LACTATED RINGERS 1,000 ML IV SCH (22:48)
[2020-11-30 22:51] LABS: Basophils % (A) 0 %; Eosinophils # (A) 0.2 k/uL (0-0.7); Eosinophils % (A) 2 %; HGB 11.6 gm/dL (11.4-16.0); Lymphocytes # (A) 1.8 k/uL (1.0-4.8); Lymphocytes % (A) 18 %; MCH 27.6 pg (25.0-35.0); MCHC 32.1 g/dL (31.0-37.0); MCV 85.8 fL (80.0-100.0); Mean Platelet Volume 10.1; Monocytes # (A) 0.5 k/uL (0-1.0); Monocytes % (A) 5 %; Neutrophils # (A) 7.3 k/uL (1.3-7.7); Neutrophils % (A) 73 %; Platelet Count 197 k/uL (150-450); RDW 14.9 % (11.5-15.5); WBC 9.9 k/uL (3.8-10.6)
[2020-11-30] MEDS: LABETALOL 100 MG TAB PO SCH (23:12)
[2020-12-01] MEDS: BUTORPHANOL 1 MG/ML 1 ML VIAL IV PRN ×2 (02:42→04:52)
[2020-12-01] MEDS: AMPICILLIN 1,000 MG in SODIUM CHLORIDE 0.9% 50 ML IVPB SCH ×3 (02:43→09:53)
[2020-12-01] MEDS: LACTATED RINGERS 1,000 ML IV SCH ×2 (06:02→08:49)
[2020-12-01] MEDS: LABETALOL 100 MG TAB PO SCH ×2 (08:48→19:42)
[2020-12-01] MEDS ORDERED: LANOLIN CREAM 5 GM TUBE TOPICAL PRN (10:38)
[2020-12-01] MEDS ORDERED: diphenhydrAMINE 50 MG/ML 1 ML VIAL IVP PRN ×2 (10:38)
[2020-12-01] MEDS ORDERED: ZOLPIDEM 5 MG TAB PO PRN (10:38)
[2020-12-01] MEDS ORDERED: diphenhydrAMINE 50 MG CAP PO PRN (10:38)
[2020-12-01] MEDS ORDERED: BENZOCAINE/MENTHOL SPRAY 1 GM/SPRAY AEROSOL TOPICAL PRN (10:38)
[2020-12-01] MEDS ORDERED: SIMETHICONE 80 MG CHEWABLE PO PRN (10:38)
[2020-12-01] MEDS ORDERED: ACETAMINOPHEN TAB 325 MG TAB PO PRN (10:38)
[2020-12-01] MEDS ORDERED: HYDROCORTISONE 2.5% RECTAL CREAM 30 GM TUBE RECTAL PRN (10:38)
[2020-12-01] MEDS ORDERED: diphenhydrAMINE 25 MG CAP PO PRN (10:38)
--- NOTE | 2020-12-01 10:41 | P.HPOB ---
History of Present Illness H&P Date: 12/01/20 Chief Complaint: IUP @ 38 5/7, SROM This is a 25yo at 38 5/7 weeks that presents to labor and delivery with complaints of spontaneous rupture of membranes around 8 PM. Patient noted fluid to be clear in nature. She noted a regular contractions around the time of ru pture of membranes, denied vaginal bleeding. Good movement is appreciated. Patient has been receiving routine care which has been essentially complicated by hypertension for which she's been taking labetalol. She states blood pressures have been well controlled throughout the . Bloodwork this patient is blood type of A+, rubella status immune, B surface antigen negative, HIV negative, RPR nonreactive, group beta strep culture is positive. Review of Systems Constitutional: Denies fatigue, Denies fever Ears, nose, mouth and throat: Denies headache Cardiovascular: Reports leg edema Respiratory: Denies dyspnea Gastrointestinal: Denies nausea, Denies vomiting Genitourinary: Reports Past Medical History Past Medical History: Hypertension History of Any Multi-Drug Resistant Organisms: None Reported Past Surgical History: No Surgical Hx Reported Additional Past Surgical History / Comment(s): oral surgery Past Anesthesia/Blood Transfusion Reactions: No Reported Reaction Past Psychological History: Anxiety, Depression Smoking Status: Never smoker Past Alcohol Use History: None Reported Past Drug Use History: None Reported - Past Family History Mother History Unknown: Yes Family Medical History: Hypertension Medications and Allergies Home Medications Medication Instructions Recorded Confirmed Type Aspirin 1 tab PO DAILY 08/23/20 11/30/20 History B12/Levomefolate Calcium/B-6 1 tab PO DAILY 08/23/20 11/30/20 History [Foltx Tablet] Labetalol [Trandate] 1 tab PO BID 08/23/20 11/30/20 History Pnv,Calcium 72/Iron/Folic Acid 1 tab PO DAILY 08/23/20 11/30/20 History [ Plus Tablet] Allergies Allergy/AdvReac Type Severity Reaction Status Date / Time No Known Allergies Allergy Verified 11/30/20 21:57 Exam Osteopathic Statement: *. No significant issues noted on an osteopathic structural exam other than those noted in the History and Physical/Consult. 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 heart tones are noted to be category 1 and she is ron every 5 minutes. Results Result Diagrams: 11/30/20 22:39 Assessment and Plan (1) Term Current Visit: Yes Status: Acute Code(s): Z34.90 - ENCNTR FOR SUPRVSN OF NORMAL , UNSP, UNSP TRIMESTER SNOMED Code(s): 70397500 (2) SROM (spontaneous rupture of membranes) Current Visit: Yes Status: Acute Code(s): RHL9083 - SNOMED Code(s): 921931984 (3) Positive GBS test Current Visit: Yes Status: Acute Code(s): B95.1 - STREPTOCOCCUS, GROUP B, CAUSING DISEASES CLASSD ELSR SNOMED Code(s): 281271226 (4) Obesity Current Visit: No Status: Acute Code(s): E66.9 - OBESITY, UNSPECIFIED SNOMED Code(s): 172758070 Plan: Patient is admitted to labor and delivery for expectant management. IV ampicillin was begun for group beta strep positive culture prophylaxis. Patient made minimal change throughout the evening, Pitocin augmentation of labor was offered, patient declines. Patient declines epidural. Anticipate spontaneous vaginal delivery
--- NOTE | 2020-12-01 10:42 | P.PROBDLV ---
Vaginal Delivery Note - . Vaginal Delivery Note: This is a 25-year-old 4 para 3003 that presented to labor and delivery at 38-4/7 weeks with complaints of spontaneous rupture of membranes. Patient was admitted to labor and delivery for expectant management. Patient declined Pitocin augmentation of labor. Patient was known GBS positive therefore antibiotics were begun for prophylaxis. Patient did request Stadol throughout the labor process. Patient progressed to complete began pushing and had a normal spontaneous vaginal delivery of a viable male at 1027, weight of 8 lbs. 0 oz. After two-minute delayed the umbilical cord was doubly clamped and cut. A spontaneous cry was noted at . The was then handed to the maternal abdomen. The placenta was then delivered spontaneously intact with three-vessel cord being noted. No vaginal lacerations were appreciated on exam. The uterus is noted to be firm and below the umbilicus at this time. All counts were noted be correct 2 at the end of the delivery. Patient and infant tolerated delivery well and are resting comfortably.
[2020-12-01] MEDS ORDERED: OXYTOCIN 30 UNITS/500 ML NS 30 UNIT in SALINE 1 500ML.BAG IV SCH (10:45)
[2020-12-01] MEDS: IBUPROFEN 600 MG TAB PO SCH ×3 (11:02→19:42)
[2020-12-01] MEDS ORDERED: SENNOSIDES-DOCUSATE SODIUM 1 EACH TAB PO SCH (20:00)
[2020-12-02] MEDS: IBUPROFEN 600 MG TAB PO SCH ×2 (05:47→07:59)
[2020-12-02] MEDS: LABETALOL 100 MG TAB PO SCH (08:00)
[2020-12-02 08:46] VITALS: BP 123/84; PULSE 96; RESP 16; TEMP 98.5
--- NOTE | 2020-12-02 12:30 | P.DS ---
Providers Date of admission: 11/30/20 21:57 Expected date of discharge: 12/02/20 Attending physician: Zena Bell Primary care physician: Stated None - Discharge Diagnosis(es) (1) Term Current Visit: Yes Status: Acute (2) SROM (spontaneous rupture of membranes) Current Visit: Yes Status: Acute (3) Positive GBS test Current Visit: Yes Status: Acute (4) Obesity Current Visit: No Status: Acute (5) Delivery normal Current Visit: No Status: Acute Hospital Course: This is a 25-year-old 4 now para 4 that presented to labor and delivery yesterday 12/01 at 38-4/7 weeks with complaints of spontaneous rupture of membranes. Patient was receiving routine care which had been uncomplicated by hypertension for which she was taking by mouth labetalol. Patient's blood pressures have been well controlled throughout . Patient was admitted to labor and delivery for expectant management. Patient declined augmentation with Pitocin, epidural. Patient did receive 2 doses of Stadol through the night. Patient made very slow progress through labor. Patient did eventually become complete began pushing and had a normal spontaneous vaginal delivery of a viable male at 1007, weight of 8 lbs. 0 oz. Patient's course has been uneventful. On this day #1 she is ambulating and voiding without difficulty. She is tolerating a regular diet without nausea or vomiting. She states her pain is well-controlled. She would like discharge home at 24 hours if possible. Patient Condition at Discharge: Good Plan - Discharge Summary New Discharge Prescriptions: No Action Labetalol [Trandate] 1 tab PO BID Pnv,Calcium 72/Iron/Folic Acid [ Plus Tablet] 1 tab PO DAILY Aspirin 1 tab PO DAILY B12/Levomefolate Calcium/B-6 [Foltx Tablet] 1 tab PO DAILY Discharge Medication List Aspirin 1 tab PO DAILY 08/23/20 [History] B12/Levomefolate Calcium/B-6 [Foltx Tablet] 1 tab PO DAILY 08/23/20 [History] Labetalol [Trandate] 1 tab PO BID 08/23/20 [History] Pnv,Calcium 72/Iron/Folic Acid [ Plus Tablet] 1 tab PO DAILY 08/23/20 [History] Follow up Appointment(s)/Referral(s): Zena Bell MD [STAFF PHYSICIAN] - 6 Weeks Patient Instructions/Handouts: Vaginal Delivery (DC), Vaginal Delivery (GEN) Discharge Disposition: HOME SELF-CARE
== END 2020-12-02 15:13 | disposition home or self-care (01) | DRG 807 ==
LOC: FBPOP 21:47 → 4FBP 21:57
PROVIDERS: ADMIT Obstetrics & Gynecology Obstetrics; ATTEND Obstetrics & Gynecology
PROC: 10E0XZZ Delivery of Products of Conception, External Approach (ICD-10-PCS; principal; 2020-12-01)
DX: O16.4 Unspecified maternal hypertension, complicating childbirth (principal); Z37.0 Single live birth; O99.824 Streptococcus B carrier state complicating childbirth; O99.214 Obesity complicating childbirth; Z3A.38 38 weeks gestation of pregnancy; Z79.82 Long term (current) use of aspirin; Z82.49 Family history of ischemic heart disease and other diseases of the circulatory system
CPT/HCPCS: 59025; 85025; 86850; 86900; 86901; 88307; 99213

== ENCOUNTER → 2021-05-13 | Outpatient (CLI) | payer OTHER ==
--- NOTE | 2021-05-13 12:06 | CT ---
EXAMINATION TYPE: CT angio chest DATE OF EXAM: 05/13/2021 COMPARISON: NONE HISTORY: Elevated d-dimer. CT DLP: 896.3 mGycm. Automated Exposure Control for Dose Reduction was Utilized. CONTRAST: CTA scan of the thorax is performed with IV Contrast, patient injected with 100 mL of Isovue M300, pu lmonary embolism protocol. MIP Images are created on CT scanner and reviewed. FINDINGS: LUNGS: Incidental 4 mm peripheral calcified left upper lobe nodule or benign granuloma axial image 51 . Lungs are clear without focal consolidation. No pleural effusion or pneumothorax is seen bilaterall y. Tracheobronchial tree is patent. MEDIASTINUM: There is suboptimal bolus, most dense contrast within the SVC. There is near equal poor contrast opacification of the aorta and pulmonary arteries. There is no convincing CT evidence for ac hedy pulmonary embolism There are no greater than 1 cm hilar or mediastinal lymph nodes. Mild cardiome tr is noted with moderate right atrial dilatation. No pericardial effusion. OTHER: No additional significant abnormality is seen. IMPRESSION: 1. Suboptimal study but No CT evidence for acute pulmonary embolus. Lungs are grossly clear. 2. Mild Cardiomegaly with moderate right atrial dilatation is prominent for patient's chronologic age . Advise cardiology follow-up if this is not known finding.
== END | disposition home or self-care (01) ==
LOC: RADCTMAIN 11:27
PROVIDERS: ATTEND Family Medicine
DX: R79.1 Abnormal coagulation profile (principal)
CPT/HCPCS: 71275; Q9967

== ENCOUNTER → 2021-05-27 | Outpatient (CLI) | payer OTHER ==
--- NOTE | 2021-05-28 10:00 | ECHOF ---
Referral Reason:I10 MEASUREMENTS -------- HEIGHT: 167.6 cm WEIGHT: 168.3 kg BP: RVIDd: 3.5 cm (< 3.3) IVSd: 1.4 cm (0.6 - 1.1) LVIDd: 4.8 cm (3.9 - 5.3) LVPWd: 1.3 cm (0.6 - 1.1) IVSs: 1.8 cm LVIDs: 2.7 cm LVPWs: 1.8 cm LAESV Index (A-L): 29.54 ml/m Ao Diam: 2.7 cm (2.0 - 3.7) AV Cusp: 1.9 cm (1.5 - 2.6) LA Diam: 4.6 cm (2.7 - 3.8) MV E Sam: 1.14 m/s MV DecT: 227 ms MV A Sam: 0.64 m/s MV E/A Ratio: 1.78 RAP: 5.00 mmHg RVSP: 27.53 mmHg FINDINGS -------- Sinus rhythm. This was a technically adequate study. The left ventricular size is normal. There is moderate concentric left ventricular hypertrophy. O verall left ventricular systolic function is normal with, an EF between 55 - 60 %. The diastolic fi lling pattern is normal for the age of the patient {E/E'}. The right ventricle is mildly enlarged. LA is midly dilated 29-33ml/m2. The right atrial size is normal. Interatrial and interventricular septum intact. There is no evidence of aortic regurgitation. There is no evidence of aortic stenosis. Mild mitral regurgitation is present. Mild tricuspid regurgitation present. There is no evidence of pulmonary hypertension. The right v entricular systolic pressure, as measured by Doppler, is 27.53mmHg. There is no pulmonic regurgitation present. The aortic root size is normal. IVC Not well visulized. There is no pericardial effusion. CONCLUSIONS -------- 1. The left ventricular size is normal. 2. There is moderate concentric left ventricular hypertrophy. 3. Overall left ventricular systolic function is normal with, an EF between 55 - 60 %. 4. The diastolic filling pattern is normal for the age of the patient {E/E'} 5. The right ventricle is mildly enlarged. 6. LA is midly dilated 29-33ml/m2. 7. Mild mitral regurgitation is present. 8. Mild tricuspid regurgitation present. NETTING WEAVER: Radha Betancur RDCS
== END | disposition home or self-care (01) ==
LOC: RADECHMAIN 13:42
PROVIDERS: ATTEND Family Medicine
DX: I10 Essential (primary) hypertension (principal); I51.7 Cardiomegaly; I34.0 Nonrheumatic mitral (valve) insufficiency
CPT/HCPCS: 93306

== ENCOUNTER → 2022-05-05 | Outpatient (CLI) | payer OTHER ==
--- NOTE | 2022-05-06 13:21 | MR ---
EXAMINATION TYPE: MR pancreas wo/w con DATE OF EXAM: 05/05/2022 9:41 AM INDICATION: Patient age:Female; 27 years old; Reason for study: K86.9 DISEASE OF PANCREAS. Abdominal pain. COMPARISON: None TECHNIQUE: Multiplanar multi-sequence imaging was performed without contrast. Post contrast imaging was performed. IV Contrast: 15 cc Gadavist FINDINGS: LOWER CHEST: No gross irregularity. ABDOMEN Liver: Unremarkable. Gallbladder and Bile ducts: No evidence for gallstones or cholelithiasis, no choledocholithiasis. Pancreas: Pancreatic parenchyma enhances uniformly. There is no evidence for ductal dilation or mass. Normal duct morphology without evidence for pancreatic/divisum. No adjacent fat stranding changes. N o abnormal postcontrast enhancement. Spleen: Unremarkable. Adrenal glands: Unremarkable. Kidneys: Unremarkable. Stomach and Bowel: Unremarkable as visualized. Peritoneum: No evidence of pneumoperitoneum or free fluid. Vasculature: Unremarkable. No aortic aneurysm. Musculoskeletal: The osseous structures appear intact. Lymph Nodes: No gross evidence for lymphadenopathy. Abdominal wall: Unremarkable. IMPRESSION: No evidence for acute process. Pancreas within normal limits for morphology without evidence for panc reatitis, choledocholithiasis, or ductal dilation.
== END | disposition home or self-care (01) ==
LOC: RADMRIMAIN 08:49
PROVIDERS: ATTEND Family Medicine
DX: K86.9 Disease of pancreas, unspecified (principal)
CPT/HCPCS: 74183; A9585